=== PATIENT | female | born 1975 ===

== ENCOUNTER 2018-02-16 17:10 | Emergency (ER) | payer OTHER ==
[~2018-02-16] VITALS: Ht 149.9 cm; Wt 57.2 kg
== END 2018-02-16 21:59 | disposition home or self-care (01) ==
LOC: ER 17:10
DX: S83.8X2A Sprain of other specified parts of left knee, initial encounter (principal); Y93.B1 Activity, exercise machines primarily for muscle strengthening; Y93.89 Activity, other specified; Y92.39 Other specified sports and athletic area as the place of occurrence of the external cause; Y99.8 Other external cause status

== ENCOUNTER 2018-06-19 06:25 | Day surgery (SDC) | payer OTHER ==
[2018-06-19] MEDS ORDERED: PERCOCET 5-3251 EACH PO (18:56)
[2018-06-19] MEDS ORDERED: COLACE100 MG PO (18:57)
[2018-06-19] MEDS ORDERED: NEURONTIN300 MG PO (18:57)
== END 2018-06-19 21:50 | disposition home or self-care (01) ==
LOC: CIR.AMB 06:25
DX: K40.90 Unilateral inguinal hernia, without obstruction or gangrene, not specified as recurrent (principal)